=== PATIENT | female | born 1955 | race American Indian/Alaskan Native ===

== ENCOUNTER 2017-09-20 09:58 | Emergency (ER) | payer SELFPAY ==
[2017-09-20] MEDS ORDERED: NORCO 5/325 PO ONE (10:56)
[2017-09-20] MEDS ORDERED: CLEOCIN 900 MG/50 mL 900 MG/50 ML BAG IV ONE (10:56)
--- NOTE | 2017-09-20 11:00 | Emergency Department Report ---
ED ENT HPI - General Chief complaint: Dental/Oral Stated complaint: FACIAL SWELLING Time Seen by Provider: 09/20/17 10:52 Source: patient Mode of arrival: Ambulatory Limitations: No Limitations - History of Present Illness -: Gradual, days(s) Location: other (R FACE SWELLING W R UPPER MOLAR DENTAL PAIN) Severity: moderate (WORSE THIS AM) Quality: crushing Consistency: constant Improves with: none Worsens with: eating Context- Dental: history of dental caries Associated Symptoms: gum swelling, toothache. denies: fever, cough, pain with swallowing, sore throat, tinnitus, hearing loss, discharge from ear, rhinorrhea - Related Data Previous Rx's Medication Instructions Recorded Last Taken Type Clindamycin [Clindamycin CAP] 300 mg PO Q8H #30 cap 09/20/17 Unknown Rx Naproxen [Naprosyn] 500 mg PO BID PRN #20 tablet 09/20/17 Unknown Rx traMADol [Ultram] 50 mg PO Q6HR PRN #12 tablet 09/20/17 Unknown Rx Allergies Allergy/AdvReac Type Severity Reaction Status Date / Time No Known Allergies Allergy Unverified 09/20/17 10:02 ED Dental HPI - General Chief complaint: Dental/Oral Stated complaint: FACIAL SWELLING Time Seen by Provider: 09/20/17 10:52 Source: patient Mode of arrival: Ambulatory Limitations: No Limitations - Related Data Previous Rx's Medication Instructions Recorded Last Taken Type Clindamycin [Clindamycin CAP] 300 mg PO Q8H #30 cap 09/20/17 Unknown Rx Naproxen [Naprosyn] 500 mg PO BID PRN #20 tablet 09/20/17 Unknown Rx traMADol [Ultram] 50 mg PO Q6HR PRN #12 tablet 09/20/17 Unknown Rx Allergies Allergy/AdvReac Type Severity Reaction Status Date / Time No Known Allergies Allergy Unverified 09/20/17 10:02 ED Review of Systems ROS: Stated complaint: FACIAL SWELLING Other details as noted in HPI Comment: All other systems reviewed and negative ENT: dental pain ( WITH R FACIAL SWELLING; WORSE THIS AM) ED Past Medical Hx - Past Medical History Previous Medical History?: No - Surgical History Past Surgical History?: No - Social History Smoking Status: Never Smoker Substance Use Type: Alcohol - Medications Home Medications: Home Medications Medication Instructions Recorded Confirmed Last Taken Type Clindamycin [Clindamycin CAP] 300 mg PO Q8H #30 cap 09/20/17 Unknown Rx Naproxen [Naprosyn] 500 mg PO BID PRN #20 tablet 09/20/17 Unknown Rx traMADol [Ultram] 50 mg PO Q6HR PRN #12 tablet 09/20/17 Unknown Rx ED Physical Exam - General Limitations: No Limitations General appearance: alert - Head Head exam: Present: atraumatic - Eye Eye exam: Present: PERRL - ENT ENT exam: Present: mucous membranes moist, TM's normal bilaterally, normal external ear exam. Absent: normal orophraynx (R UPPER CARIES OF MOLARS NOTED), mucous membranes dry - Expanded ENT Exam Expanded Mouth exam: Absent: drooling, trismus, muffled voice, tongue normal, tongue elevation, laceration 1 - Other (CARIES AND PLACQUE; NO ABSCESS; NO LUDWIGS) - Neck Neck exam: Present: normal inspection. Absent: tenderness, meningismus, full ROM, lymphadenopathy, thyromegaly - Respiratory Respiratory exam: Present: normal lung sounds bilaterally - Cardiovascular Cardiovascular Exam: Present: regular rate - GI/Abdominal GI/Abdominal exam: Present: soft - Rectal Rectal exam: Present: deferred - Extremities Exam Extremities exam: Present: normal inspection - Back Exam Back exam: Present: normal inspection - Neurological Exam Neurological exam: Present: alert, oriented X3, CN II-XII intact - Psychiatric Psychiatric exam: Present: normal affect, normal mood - Skin Skin exam: Present: warm, dry, intact ED Course Vital Signs 09/20/17 09/20/17 10:03 13:01 Temperature 99.1 F 99.0 F Pulse Rate 92 H 69 Respiratory 18 18 Rate Blood Pressure 138/72 Blood Pressure 138/63 [Left] O2 Sat by Pulse 97 96 Oximetry - Reevaluation(s) Reevaluation #1: 09/20/17 13:08 TO ER W DENTAL PAIN AND R FACIAL SWELLING NO SINUS S/S NON TOXIC NO FEVER NON ILL APPEARING CT NOTED LABS NOTED MEDICATED DC HOME W DC POC TAKING PO ED Medical Decision Making - Lab Data Result diagrams: 09/20/17 11:44 09/20/17 11:44 - Radiology Data Radiology results: report reviewed, image reviewed - Medical Decision Making SEE NOTE - Differential Diagnosis RO ABSCESS Critical care attestation.: If time is entered above; I have spent that time in minutes in the direct care of this critically ill patient, excluding procedure time. ED Disposition Clinical Impression: Dental disease, Pain, dental, Dental abscess Disposition: TO HOME OR SELFCARE Is pt being admited?: No Does the pt Need Aspirin: No Condition: Stable Instructions: Dental Abscess (ED) Additional Instructions: DMD KRISTY MEDS ORDERED TODAY Prescriptions: Clindamycin [Clindamycin CAP] 300 mg PO Q8H #30 cap Naproxen [Naprosyn] 500 mg PO BID PRN #20 tablet PRN Reason: Pain traMADol [Ultram] 50 mg PO Q6HR PRN #12 tablet PRN Reason: Pain Referrals: PRIMARY CARE, [Primary Care Provider] - 3-5 Days [facility] [Outside] - 3-5 Days Time of Disposition: 12:41
--- NOTE | 2017-09-20 11:29 | Cat Scan Report ---
CT OF THE PARANASAL SINUSES:09/20/17 09:58:00 CLINICAL:Right facial swelling and pain. TECHNIQUE: Volumetric acquisition and 1.25-mm axial scan reconstructions without contrast. Sagittal and coronal reformats were performed. FINDINGS: Mucoperiosteal thickening of the right maxillary sinus and a 2 cm mucous retention cyst in the floor of the right maxillary sinus. An opacified right sphenoid air cell and an opacified left sphenoid air cell. The rest of the sinuses are clear. Patent ostiomeatal units. Mild nonspecific right maxillary soft tissue edema. The nasal passages are clear. Mild deviation of the nasal septum to the right. Piercing in the right nares. No soft tissue abscess or soft tissue air. Right lower dental caries. No evidence of osteomyelitis. IMPRESSION: Moderate right maxillary and bilateral sphenoid sinusitis. No soft tissue abscess or signs of osteomyelitis.
[2017-09-20 12:10] LABS: Basophils # (Auto) 0.1 K/mm3 (0.0-0.1); Basophils % (Auto) 0.6 % (0.0-1.8); Eosinophils # (Auto) 0.1 K/mm3 (0.0-0.4); Eosinophils % (Auto) 0.7 % (0.0-4.3); Hematocrit 40.5 % (30.3-42.9); Hemoglobin 13.2 gm/dl (10.1-14.3); Lymphocytes # (Auto) 2.7 K/mm3 (1.2-5.4); Lymphocytes % (Auto) 21.7 % (13.4-35.0); Mean Corpuscular HGB Conc 33 % (30-34); Mean Corpuscular Hemoglobin 29 pg (28-32); Mean Corpuscular Volume 88 fl (79-97); Monocytes # (Auto) 0.8 K/mm3 (0.0-0.8); Monocytes % (Auto) 6.5 % (0.0-7.3); Platelet Count 335 K/mm3 (140-440); Red Cell Distribution Width 14.7 % (13.2-15.2)
[2017-09-20 12:18] LABS: BUN/Creatinine Ratio 13; Blood Urea Nitrogen 9 mg/dL (7-17); Calcium 9.3 mg/dL (8.4-10.2); Hemolysis Index 58
[2017-09-20 12:20] LABS: Alanine Aminotransferase 18 units/L (7-56); Albumin 4.3 g/dL (3.9-5)
[2017-09-20 12:21] LABS: Bilirubin,Direct < 0.2 mg/dL (0-0.2)
[2017-09-20 13:02] VITALS: BP 138/63
--- NOTE | 2017-09-21 19:18 | Event Note ---
Date: 09/21/17 PT CALLED ER PHONE SHE CALLED STATING THAT SHE CAN NOT AFFORD ANTIBIOTIC YELLING AND ANGRY ON PHONE TOLD HER ID GLADLY REEVAL HER HERE IN ER BUT I WOULD NOT DEC ANBX COVERAGE BASED ON HER EXAM YEST SHE HUNG UP THE PHONE
== END 2017-09-20 13:29 | disposition home or self-care (01) ==
LOC: ED 09:58
DX: K04.7 Periapical abscess without sinus (principal)
CPT/HCPCS: 36415; 70486; 80048; 80074; 85025; 96365

== ENCOUNTER 2018-12-08 15:29 | Emergency (ER) | payer MEDICARE, OTHER ==
[2018-12-08 15:48] VITALS: BP 164/49
--- NOTE | 2018-12-08 15:50 | Emergency Department Report ---
Chief Complaint: Skin Rash Stated Complaint: RASH/AXILLA/COLD Time Seen by Provider: 12/08/18 15:46 - HPI History of Present Illness: This is a 63 y.o. female that presents with congestion and pruitic rash under bilateral arms. Patient reports URI x 2 weeks and rash for 1 week. She is taking cold and flu medication with miniamal improvement of symptoms. - ROS Review of Systems: congestion and pruitic rash - Exam Vital Signs: Vital Signs 12/08/18 15:46 Temperature 98.1 F Pulse Rate 64 Respiratory 18 Rate Blood Pressure 164/49 O2 Sat by Pulse 99 Oximetry MSE screening note: Focused history and physical exam performed. Due to findings the following was ordered: Fast track for further evaluation ED Disposition for MSE Condition: Stable
[2018-12-08] MEDS ORDERED: PEPCID PO ONE (16:49)
[2018-12-08] MEDS ORDERED: DELTASONE PO ONE (16:49)
--- NOTE | 2018-12-08 16:49 | Emergency Department Report ---
ED Rash HPI - HPI Chief Complaint: Skin Rash Stated Complaint: RASH/AXILLA/COLD Time Seen by Provider: 12/08/18 15:46 Duration: 3 Days Rash Symptoms: Yes Itching, Yes Fever, No Facial Swelling, No Tongue/Oral Swelling, No Breathing Difficulties, No Choking Sensation, No Wheezing/Dyspnea, No Peeling, No Blistering, No Lightheaded, No Malaise, No Myalgias Severity: mild Other History: Patient is a 63-year-old female who comes to the ER today with 2 complaints. One is she has a skin rash under both axilla. 2 she has a cough/cold. She reports a temperature of up to 101. Patient is ambulatory nontoxic and afebrile in the ER. Patient smokes a half a pack of cigarettes a day. home medications none. Past medical history denies ED Review of Systems ROS: Stated complaint: RASH/AXILLA/COLD Other details as noted in HPI Comment: All other systems reviewed and negative Constitutional: see HPI, fever. denies: chills Eyes: denies: eye pain, eye discharge ENT: denies: ear pain, throat pain Respiratory: see HPI, cough Cardiovascular: denies: chest pain Endocrine: denies: excessive sweating Gastrointestinal: denies: nausea Genitourinary: denies: urgency Musculoskeletal: denies: back pain Skin: denies: lesions Neurological: denies: headache Psychiatric: denies: anxiety Hematological/Lymphatic: denies: easy bleeding ED Past Medical Hx - Past Medical History Previous Medical History?: No - Surgical History Past Surgical History?: Yes Additional Surgical History: hysterectomy - Family History Family history: no significant - Social History Smoking Status: Current Every Day Smoker Substance Use Type: None - Medications Home Medications: Home Medications Medication Instructions Recorded Confirmed Last Taken Type Azithromycin [Zithromax Z-BERT] 250 mg PO DAILY #6 tablet 12/08/18 Unknown Rx Benzonatate [Tessalon Perles] 100 mg PO Q8HR PRN #20 capsule 12/08/18 Unknown Rx Cetirizine HCl [ZyrTEC] 10 mg PO DAILY #30 capsule 12/08/18 Unknown Rx Fluticasone [Flonase] 1 spray NS QDAY #1 bottle 12/08/18 Unknown Rx predniSONE [Deltasone] 20 mg PO DAILY #5 tablet 12/08/18 Unknown Rx Rash Exam - Exam General: Vital signs noted. No distress. Alert and acting appropriately. HEENT: No Periorbital Edema, No Conjuctival Injection, No Chemosis, No Perioral Edema, No Tongue Edema, No Uvular Edema, No Compromised Airway, No Drooling Lungs: Yes Wheezes (mild b), Yes Stridor, No Good Air Exchange, No Ronchi, No Cough, No Labored Respirations, No Retractions, No Use of Accessory Muscles, No Other Abnormal Lung Sounds Heart: Yes Regular, No Murmur Skin: Yes Erythema (hives b axilla p changing laundry soap; no abscess), No Urticarial Rash, No Maculopapular Rash, No Morbilliform rash, No Bulla(e), No Excoriations, No Weeping, No Tenderness, No Edema, No Encrustations, No Other Other: Positive: Abdomen Normal, Neurologic Normal, Musculoskeletal Normal ED Course Vital Signs 12/08/18 15:46 Temperature 98.1 F Pulse Rate 64 Respiratory 18 Rate Blood Pressure 164/49 O2 Sat by Pulse 99 Oximetry ED Medical Decision Making - Medical Decision Making no cp no sob vss no fever no abscess smoker non toxic taking po medicated in ER dc home w dc poc Critical care attestation.: If time is entered above; I have spent that time in minutes in the direct care of this critically ill patient, excluding procedure time. ED Disposition Clinical Impression: Bronchitis, Rash due to allergy Disposition: DC-01 TO HOME OR SELFCARE Is pt being admited?: No Does the pt Need Aspirin: No Condition: Stable Instructions: Acute Bronchitis (ED), Acute Rash (ED) Additional Instructions: MED ORDERED HYDRATE WELL WITH WATER MOTRIN OR TYLENOL FOR PAIN OR FEVER DIET TOLERATED ACTIVITY TOLERATED FOLLOW UP PCP referral below follow up derm if rash persists referral below Referrals: [facility] [Outside] - 3-5 Days GAVIN DORADO MD [Referring] - 3-5 Days Time of Disposition: 16:54
[2018-12-08] MEDS ORDERED: DUONEB *Not for PRN Use IH ONE (16:50)
== END 2018-12-08 17:17 | disposition home or self-care (01) ==
LOC: ED 15:29
DX: J40 Bronchitis, not specified as acute or chronic (principal); R21 Rash and other nonspecific skin eruption; T78.40XA Allergy, unspecified, initial encounter; X58.XXXA Exposure to other specified factors, initial encounter
CPT/HCPCS: 94640; 99282; J7512

== ENCOUNTER 2020-11-28 19:31 | Emergency (ER) | payer SELFPAY ==
[2020-11-28 20:12] VITALS: BP 164/92
[2020-11-28] MEDS ORDERED: ALBUTEROL 2.5 MG/3 ML NEBU IH ONE (20:13)
--- NOTE | 2020-11-28 20:24 | Emergency Department Report ---
ED General Adult HPI - General Chief complaint: Upper Respiratory Infection Stated complaint: HEAD COLD/SASHA,SORE THROAT Time Seen by Provider: 11/28/20 20:14 Source: patient Mode of arrival: Ambulatory Limitations: No Limitations - History of Present Illness Initial comments: Pt is a 65 y/o aaf with hx or recurring sinusitis who presents for cough wheezi ng sob, sinud drianage and pressurx 3 days, symptoms are exacerbated by activity , symptoms are relived by rest. pt is a 40 pack year smoker. rates symptoms as 10 for wheezing - Related Data Previous Rx's Medication Instructions Recorded Last Taken Type Azithromycin [Zithromax Z-BERT] 250 mg PO DAILY #6 tablet 12/08/18 Unknown Rx Benzonatate [Tessalon Perles] 100 mg PO Q8HR PRN #20 capsule 12/08/18 Unknown Rx Cetirizine HCl [ZyrTEC] 10 mg PO DAILY #30 capsule 12/08/18 Unknown Rx Fluticasone [Flonase] 1 spray NS QDAY #1 bottle 12/08/18 Unknown Rx predniSONE [Deltasone] 20 mg PO DAILY #5 tablet 12/08/18 Unknown Rx Albuterol Mdi (or & Nicu Only) 2 puff IH QID PRN #8.5 gram 11/28/20 Unknown Rx [ProAir HFA Inhaler] Azithromycin 500 mg PO DAILY #5 tablet 11/28/20 Unknown Rx guaiFENesin [Guaifenesin] 400 mg PO Q6H PRN #30 tablet 11/28/20 Unknown Rx predniSONE [Deltasone] 40 mg PO QDAY #10 tab 11/28/20 Unknown Rx Allergies Allergy/AdvReac Type Severity Reaction Status Date / Time No Known Allergies Allergy Unverified 09/20/17 10:02 ED Review of Systems ROS: Stated complaint: HEAD COLD/SASHA,SORE THROAT Other details as noted in HPI Constitutional: denies: chills, fever Eyes: denies: eye pain, eye discharge, vision change ENT: denies: ear pain, throat pain Respiratory: cough, shortness of breath, wheezing Cardiovascular: denies: chest pain, palpitations Endocrine: no symptoms reported Gastrointestinal: denies: abdominal pain, nausea, diarrhea Genitourinary: denies: urgency, dysuria, discharge Musculoskeletal: denies: back pain, joint swelling, arthralgia Skin: denies: rash, lesions Neurological: headache, vertigo. denies: weakness, paresthesias Psychiatric: denies: anxiety, depression Hematological/Lymphatic: denies: easy bleeding, easy bruising ED Past Medical Hx - Past Medical History Previous Medical History?: No - Surgical History Additional Surgical History: hysterectomy - Social History Smoking Status: Current Every Day Smoker Substance Use Type: None - Medications Home Medications: Home Medications Medication Instructions Recorded Confirmed Last Taken Type Azithromycin [Zithromax Z-BERT] 250 mg PO DAILY #6 tablet 12/08/18 Unknown Rx Benzonatate [Tessalon Perles] 100 mg PO Q8HR PRN #20 capsule 12/08/18 Unknown Rx Cetirizine HCl [ZyrTEC] 10 mg PO DAILY #30 capsule 12/08/18 Unknown Rx Fluticasone [Flonase] 1 spray NS QDAY #1 bottle 12/08/18 Unknown Rx predniSONE [Deltasone] 20 mg PO DAILY #5 tablet 12/08/18 Unknown Rx Albuterol Mdi (or & Nicu Only) 2 puff IH QID PRN #8.5 gram 11/28/20 Unknown Rx [ProAir HFA Inhaler] Azithromycin 500 mg PO DAILY #5 tablet 11/28/20 Unknown Rx guaiFENesin [Guaifenesin] 400 mg PO Q6H PRN #30 tablet 11/28/20 Unknown Rx predniSONE [Deltasone] 40 mg PO QDAY #10 tab 11/28/20 Unknown Rx ED Physical Exam - General Limitations: No Limitations General appearance: alert, in no apparent distress - Head Head exam: Present: normocephalic, normal inspection - Eye Eye exam: Present: PERRL, EOMI Pupils: Present: normal accommodation - ENT ENT exam: Present: mucous membranes moist, TM's normal bilaterally, normal external ear exam - Expanded ENT Exam Expanded Ear exam: Present: normal external inspection Mouth exam: Present: other (turbinates boogy erythem clear yellow post nasal drip , no stridor ) Throat exam: Positive: normal inspection. Negative: tonsillar erythema, tonsillomegaly, tonsillar exudate - Neck Neck exam: Present: normal inspection, full ROM. Absent: tenderness - Respiratory Respiratory exam: Present: wheezes (expiratory bilat anterior ). Absent: respiratory distress, rales, rhonchi, stridor, chest wall tenderness - Cardiovascular Cardiovascular Exam: Present: regular rate, normal rhythm, normal heart sounds. Absent: systolic murmur, diastolic murmur, rubs, gallop - GI/Abdominal GI/Abdominal exam: Present: soft, normal bowel sounds. Absent: distended, tenderness, guarding, rebound, rigid, bruit, hernia - Rectal Rectal exam: Present: deferred - Extremities Exam Extremities exam: Present: normal inspection, full ROM, normal capillary refill - Back Exam Back exam: Present: normal inspection, full ROM. Absent: tenderness - Neurological Exam Neurological exam: Present: alert, oriented X3, CN II-XII intact, normal gait, reflexes normal. Absent: motor sensory deficit - Expanded Neurological Exam Expanded Patient oriented to: Present: person, place, time Speech: Present: fluid speech Best Eye Response (Tony): (4) open spontaneously Best Motor Response (Tony): (6) obeys commands Best Verbal Response (Doole): (5) oriented Doole Total: 15 - Psychiatric Psychiatric exam: Present: normal affect, normal mood - Skin Skin exam: Present: warm, dry, intact, normal color. Absent: rash ED Course Vital Signs 11/28/20 20:10 Temperature 98.0 F Pulse Rate 96 H Respiratory 18 Rate Blood Pressure 164/92 O2 Sat by Pulse 97 Oximetry ED Medical Decision Making - Radiology Data Radiology results: report reviewed, image reviewed no acute findings - Medical Decision Making CXR: no acute findings, plan: albuterol inhaler, prednisone, azithromycin, quaifenesin , follow up with primary care doctor in 2-3 days , return to emergency if symptoms worsen, Critical care attestation.: If time is entered above; I have spent that time in minutes in the direct care of this critically ill patient, excluding procedure time. ED Disposition Clinical Impression: Acute bronchitis Qualifiers: Bronchitis organism: unspecified organism Qualified Code(s): J20.9 - Acute bronchitis, unspecified Sinusitis Qualifiers: Sinusitis location: maxillary Chronicity: acute Recurrence: recurrent Qualified Code(s): J01.01 - Acute recurrent maxillary sinusitis Disposition: TO HOME OR SELFCARE Is pt being admited?: No Does the pt Need Aspirin: No Condition: Stable Instructions: Acute Bronchitis (ED), Acute Bronchitis, Adult, Sinusitis, Adult, [id number] Prescriptions: Azithromycin 500 mg PO DAILY #5 tablet predniSONE [Deltasone] 40 mg PO QDAY #10 tab guaiFENesin [Guaifenesin] 400 mg PO Q6H PRN #30 tablet PRN Reason: Cough Albuterol Mdi (or & Nicu Only) [ProAir HFA Inhaler] 2 puff IH QID PRN #8.5 gram PRN Reason: Shortness Of Breath Referrals: DEACON NAIR MD [Staff Physician] - 3-5 Days Forms: Work/School Release Form(ED) Time of Disposition: 21:19
--- NOTE | 2020-11-28 20:48 | XRay Report ---
CHEST 2 VIEWS INDICATION: cough wheezing. COMPARISON: None FINDINGS: SUPPORT DEVICES: None. HEART: Within normal limits. LUNGS/PLEURA: No acute air space or interstitial disease. No pneumothorax. ADDITIONAL FINDINGS: None. IMPRESSION: 1. No acute findings. Signer Name: Jeison Horn MD Signed: 11/28/2020 8:44 PM Workstation Name: [id number]
== END 2020-11-28 21:45 | disposition home or self-care (01) ==
LOC: ED 19:31
DX: J20.9 Acute bronchitis, unspecified (principal); J32.9 Chronic sinusitis, unspecified; Z90.710 Acquired absence of both cervix and uterus; Z79.899 Other long term (current) drug therapy
CPT/HCPCS: 71046; 99283